=== PATIENT | female | born 1975 | race Two or more races ===

== ENCOUNTER 2019-03-01 10:20 | Day surgery (SDC) | payer OTHER ==
[~2019-03-01 10:20] MED LIST: FOLIC ACID20 MG PO; FORTAMET500 MG PO; IRON325 MG PO; VITAMIN D400 UNI2 PO
== END 2019-03-01 18:25 | disposition home or self-care (01) ==
LOC: CIR.AMB 10:20
DX: N80.1 Endometriosis of ovary (principal); N73.6 Female pelvic peritoneal adhesions (postinfective)

== ENCOUNTER 2020-05-13 10:34 | Outpatient (CLI) | payer OTHER | END 2020-05-13 10:43 | disposition home or self-care (01) | LOC: RAD 10:34 | PROVIDERS: ATTEND Internal Medicine Nephrology | DX: J18.0 Bronchopneumonia, unspecified organism (principal) ==

== ENCOUNTER 2021-08-25 13:46 | Emergency (ER) | payer OTHER ==
[~2021-08-25] VITALS: Ht 154.9 cm; Wt 66.2 kg
== END 2021-08-25 15:31 | disposition home or self-care (01) ==
LOC: ER 13:46
DX: S61.422A Laceration with foreign body of left hand, initial encounter (principal); W26.0XXA Contact with knife, initial encounter; Y93.89 Activity, other specified; Y92.019 Unspecified place in single-family (private) house as the place of occurrence of the external cause; I10 Essential (primary) hypertension

== ENCOUNTER 2024-08-23 11:46 | Outpatient (CLI) | payer OTHER | END 2024-08-23 11:53 | disposition home or self-care (01) | LOC: RAD 11:46 | PROVIDERS: ATTEND Family Medicine | DX: M25.572 Pain in left ankle and joints of left foot (principal) ==